=== PATIENT | male | born 1985 | race Caucasian/White ===

== ENCOUNTER 2017-01-12 15:11 | Emergency (ER) | payer OTHER ==
[~2017-01-12 15:11] MED LIST: CLEOCIN HCL300 MG PO; KEFLEX500 MG PO; LAC PO; METFORMIN ER500 M1 PO
[2017-01-12 17:45] VITALS: BP 138/88
== END 2017-01-12 17:45 | disposition home or self-care (01) ==
LOC: ED 15:11
DX: L03.312 Cellulitis of back [any part except buttock and flank] (principal); Z79.899 Other long term (current) drug therapy; E11.9 Type 2 diabetes mellitus without complications; I10 Essential (primary) hypertension

== ENCOUNTER 2017-04-14 21:51 | Emergency (ER) | payer OTHER ==
[2017-04-14 23:10] VITALS: BP 149/92
== END 2017-04-14 23:10 | disposition home or self-care (01) ==
LOC: ED 21:51
DX: D17.79 Benign lipomatous neoplasm of other sites (principal); M54.9 Dorsalgia, unspecified

== ENCOUNTER 2018-06-14 15:59 | Emergency (ER) | payer OTHER ==
[~2018-06-14] VITALS: Ht 177.8 cm; Wt 139.7 kg
[2018-06-14 16:11] VITALS: BP 165/81; Ht 177.8 cm; Wt 139.7 kg
== END 2018-06-14 17:54 | disposition home or self-care (01) ==
LOC: ED 15:59
DX: L03.312 Cellulitis of back [any part except buttock and flank] (principal); I10 Essential (primary) hypertension; E11.9 Type 2 diabetes mellitus without complications; E78.00 Pure hypercholesterolemia, unspecified
CPT/HCPCS: J0696; J1885

== ENCOUNTER 2019-05-21 09:38 | Emergency (ER) | payer OTHER ==
[~2019-05-21] VITALS: Ht 177.8 cm; Wt 137.0 kg
[2019-05-21 09:46] VITALS: Ht 177.8 cm; Wt 137.0 kg
[2019-05-21 10:03] VITALS: BP 112/79
[2019-05-21 10:32] LABS: BASOPHIL % 0.5 % (0-2); PLATELET COUNT 249 x10^3mcL (130-400); RED CELL DISTRIBUTION WIDTH 12.3 % (11.5-14.5)
[2019-05-21 10:50] LABS: CALCIUM 9.4 mg/dL (8.5-10.1); CARBON DIOXIDE 25.2 mmol/L (21-32); CHLORIDE SERUM 101 mmol/L (98-107); CREATININE SERUM 1.3 mg/dL (0.7-1.3); GFR1 > 60 mL/min; GLUCOSE SERUM 296 mg/dL (74-106); POTASSIUM SERUM 3.9 mmol/L (3.5-5.1); SODIUM SERUM 136 mmol/L (136-145)
[2019-05-21 10:54] LABS: ALBUMIN 3.5 g/dL (3.4-5.0); ALKALINE PHOSPHATASE 47 U/L (46-116); ALT/SGPT 33 U/L (16-63); AST/SGOT 11 U/L (15-37); BILIRUBIN TOTAL 0.36 mg/dL (0.20-1.00); LIPASE 129 IU/L (73-393); TOTAL PROTEIN, SERUM 7.1 g/dL (6.4-8.2)
== END 2019-05-21 11:14 | disposition home or self-care (01) ==
LOC: ED 09:38
PROVIDERS: Emergency Medicine
DX: N23 Unspecified renal colic (principal); F17.210 Nicotine dependence, cigarettes, uncomplicated; I10 Essential (primary) hypertension; E11.9 Type 2 diabetes mellitus without complications; E78.00 Pure hypercholesterolemia, unspecified
CPT/HCPCS: 36415; 99406

== ENCOUNTER 2020-05-21 15:55 | Emergency (ER) | payer OTHER ==
[~2020-05-21] VITALS: Ht 154.9 cm; Wt 133.4 kg
[2020-05-21 16:41] VITALS: Ht 154.9 cm; Wt 133.4 kg
[2020-05-21 19:13] VITALS: BP 128/84
== END 2020-05-21 19:10 | disposition home or self-care (01) ==
LOC: ED 15:55
DX: S43.402A Unspecified sprain of left shoulder joint, initial encounter (principal); I10 Essential (primary) hypertension; E11.9 Type 2 diabetes mellitus without complications; E78.00 Pure hypercholesterolemia, unspecified; V49.49XA Driver injured in collision with other motor vehicles in traffic accident, initial encounter; Y93.I9 Activity, other involving external motion; Y92.413 State road as the place of occurrence of the external cause; Y99.8 Other external cause status
CPT/HCPCS: J1885